=== PATIENT | male | born 1995 | race Caucasian/White ===

== ENCOUNTER → 2016-12-01 20:53 | Emergency (ER) | payer SELFPAY ==
[2016-12-01 22:59] LABS: Hematocrit 47 % (42-52); Hemoglobin 15.9 g/dl (14.0-18.0); Mean Corpuscular HGB Conc 34 g/dl (31-36); Mean Corpuscular Hemoglobin 29 pg (27-31); Mean Corpuscular Volume 85 fL (80-94); Mean Platelet Volume 9 um3 (7.4-10.4); Red Blood Count 5.52 10^6/ul (4.0-5.4); Red Cell Distribution Width 13 % (10.5-15); White Blood Count 8.3 10^3/ul (3.5-10.8)
[2016-12-01 23:14] LABS: ALT 20 U/L (7-52); AST 22 U/L (13-39); Alkaline Phosphatase 43 U/L (34-104); Anion Gap 9 mmol/L (2-11); BUN/Creatinine Ratio 11.8 (8-20); Blood Urea Nitrogen 14 mg/dL (6-24); CO2 Carbon Dioxide 26 mmol/L (22-32); Calcium 10.4 mg/dL (8.6-10.3); Chloride 102 mmol/L (101-111); EGFR African American 100.2 (>60); EGFR Non-African American 77.9 (>60); Globulin 2.8 g/dL (2-4); Glucose 141 mg/dL (70-100); Potassium 3.5 mmol/L (3.5-5.0); Sodium 137 mmol/L (133-145); Total Protein 7.8 g/dL (6.4-8.9)
[2016-12-01 23:15] LABS: Acetaminophen < 15 mcg/mL; Alcohol < 10 mg/dL (<10); Salicylate < 2.50 mg/dL (<30)
[2016-12-01 23:24] LABS: TSH (Thyroid Stimulating Horm) 1.39 mcIU/mL (0.34-5.60)
[2016-12-01 23:39] VITALS: BP 139/78
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
== END | disposition home or self-care (01) ==
LOC: ED 20:53
DX: F19.10 Other psychoactive substance abuse, uncomplicated (principal); F84.5 Asperger's syndrome; Z88.0 Allergy status to penicillin
CPT/HCPCS: 36415; 80053; 80320; 80329; 84443; 85025; 99283; G0480

== ENCOUNTER 2017-01-02 20:01 | Emergency (ER) | payer BC ==
[2017-01-02 20:16] VITALS: BP 135/88
[2017-01-02 20:49] LABS: Hematocrit 43 % (42-52); Hemoglobin 15.1 g/dl (14.0-18.0); Mean Corpuscular HGB Conc 35 g/dl (31-36); Mean Corpuscular Hemoglobin 29 pg (27-31); Mean Corpuscular Volume 84 fL (80-94); Mean Platelet Volume 9 um3 (7.4-10.4); Red Blood Count 5.14 10^6/ul (4.0-5.4); Red Cell Distribution Width 13 % (10.5-15); White Blood Count 9.5 10^3/ul (3.5-10.8)
[2017-01-02 21:00] LABS: Urine Bilirubin Negative (Negative); Urine Glucose Negative (Negative); Urine Nitrite Negative (Negative)
[2017-01-02 21:03] LABS: ALT 18 U/L (7-52); AST 19 U/L (13-39); Albumin 4.4 g/dL (3.2-5.2); Alkaline Phosphatase 38 U/L (34-104); Anion Gap 6 mmol/L (2-11); BUN/Creatinine Ratio 18.1 (8-20); Blood Urea Nitrogen 19 mg/dL (6-24); CO2 Carbon Dioxide 26 mmol/L (22-32); Calcium 9.8 mg/dL (8.6-10.3); Chloride 106 mmol/L (101-111); EGFR African American 115.8 (>60); Globulin 2.8 g/dL (2-4); Glucose 107 mg/dL (70-100); Potassium 3.6 mmol/L (3.5-5.0); Sodium 138 mmol/L (133-145); Total Protein 7.2 g/dL (6.4-8.9)
[2017-01-02 21:22] LABS: Benzodiazepine Urine Screen None Detected (None Detect)
[2017-01-02 21:24] LABS: Acetaminophen < 15 mcg/mL; Alcohol < 10 mg/dL (<10); Salicylate < 2.50 mg/dL (<30)
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
== END 2017-01-02 22:39 | disposition home or self-care (01) ==
LOC: ED 20:01
DX: F19.10 Other psychoactive substance abuse, uncomplicated (principal); F84.5 Asperger's syndrome; Z88.0 Allergy status to penicillin
CPT/HCPCS: 36415; 80053; 80307; 80320; 80329; 81003; 83605; 85025; 99282; G0480

== ENCOUNTER 2017-12-13 13:58 | Emergency (ER) | payer BC, OTHER ==
[2017-12-13 14:11] VITALS: BP 116/73
--- NOTE | 2017-12-13 14:36 | UC ---
Respiratory Complaint HPI - HPI Summary HPI Summary: 22 yo male has been ill for about 36 hours sore throat cough/productive low energy no f/c no cp or sob no n/v/d - History of Current Complaint Chief Complaint: UCRespiratory Stated Complaint: COUGH Time Seen by Provider: 12/13/17 14:25 Hx Obtained From: Patient Onset/Duration: Gradual Onset, Lasting Hours Timing: Constant Severity Initially: Mild Severity Currently: Moderate Pain Intensity: 2 Pain Scale Used: 0-10 Numeric Character: Cough: Productive Aggravating Factors: Nothing Alleviating Factors: Nothing Associated Signs And Symptoms: Positive: Nasal Congestion - Allergies/Home Medications Allergies/Adverse Reactions: Allergies Allergy/AdvReac Type Severity Reaction Status Date / Time No Known Allergies Allergy Verified 12/13/17 14:11 Home Medications: Home Medications Acetaminophen [APAP] 650 mg PO ONCE PRN 12/13/17 [History Confirmed 12/13/17] Dextroamphetamine/Amphetamine [Adderall Xr 20 mg Capsule] 1 tab PO DAILY [History Confirmed 12/13/17] Duloxetine HCl [Cymbalta] 20 mg PO DAILY 12/13/17 [History Confirmed 12/13/17] Ibuprofen 400 mg PO ONCE PRN 12/13/17 [History Confirmed 12/13/17] PMH/Surg Hx/FS Hx/Imm Hx Previously Healthy: Yes - Surgical History Surgical History: None Surgery Procedure, Year, and Place: None - Family History Known Family History: Positive: Cardiac Disease, Hypertension, Diabetes - Social History Alcohol Use: Occasionally Substance Use Type: None Smoking Status (MU): Never Smoked Tobacco - Immunization History Vaccination Up to Date: Yes Review of Systems Constitutional: Negative Skin: Negative Eyes: Negative ENT: Sore Throat Respiratory: Cough Cardiovascular: Negative Gastrointestinal: Negative Genitourinary: Negative Motor: Negative Neurovascular: Negative Musculoskeletal: Negative Neurological: Negative Psychological: Negative Is Patient Immunocompromised?: No All Other Systems Reviewed And Are Negative: Yes Physical Exam Triage Information Reviewed: Yes Appearance: Well-Appearing, No Pain Distress, Well-Nourished Vital Signs: Initial Vital Signs Temp 98.4 F 12/13/17 14:06 Pulse 95 12/13/17 14:06 Resp 18 12/13/17 14:06 BP 116/73 12/13/17 14:06 Pulse Ox 99 12/13/17 14:06 Vital Signs Reviewed: Yes Eyes: Positive: Conjunctiva Clear ENT: Positive: Hearing grossly normal. Negative: Nasal congestion, Nasal drainage, Trismus, Muffled voice, Hoarse voice Neck: Positive: Supple, Nontender Respiratory: Positive: No respiratory distress, No accessory muscle use, Rhonchi - with forced expiration Cardiovascular: Positive: RRR, No Murmur Musculoskeletal: Positive: ROM Intact, No Edema Neurological: Positive: Alert Psychological Exam: Normal Skin Exam: Normal UC Diagnostic Evaluation - Laboratory O2 Sat by Pulse Oximetry: 99 - normal/not hypoxic Respiratory Course/Dx - Differential Dx/Diagnosis Provider Diagnoses: acute bronchitis Discharge - Sign-Out/Discharge Documenting (check all that apply): Patient Departure All imaging exams completed and their final reports reviewed: No Studies - Discharge Plan Condition: Stable Disposition: HOME Prescriptions: Amoxicillin PO (*) [Amoxicillin 875 MG (*)] 875 mg PO BID #14 tab Patient Education Materials: Acute Bronchitis (ED) Forms: *School Release, *Work Release Referrals: No Primary Care Phys,NOPCP [Primary Care Provider] - Additional Instructions: recheck for new or worsening symptoms recheck in 4-5 days if not better rest fluids tylenol or advil if neede plain robitussin or mucinex - Billing Disposition and Condition Condition: STABLE Disposition: Home
== END 2017-12-13 14:58 | disposition home or self-care (01) ==
LOC: UCEAST 13:58
DX: J20.9 Acute bronchitis, unspecified (principal)
CPT/HCPCS: 99212; G0463

== ENCOUNTER 2018-04-03 01:12 | Emergency (ER) | payer OTHER ==
[2018-04-03] MEDS ORDERED: Famotidine TAB* 20 MG PO ONE (01:16)
[2018-04-03] MEDS ORDERED: NS 0.9% 1000 ML** 1,000 ML IV ONE (01:16)
[2018-04-03] MEDS ORDERED: Ondansetron INJ* 2 MG/ML VIAL IV ONE (01:16)
--- NOTE | 2018-04-03 01:41 | ED ---
Substance Abuse/Use - HPI Summary HPI Summary: Pt is a 22 y/o male brought in by EMS who presents to the ED c/o alcohol intoxication. As per EMS, he was had 2 alcoholic beverages, 5 shots of alcohol, and smoked marijuana. Pt is oriented x3 but is sleepy. He vomited once in the ambulance. EMS denies any trauma. Pts HR between 98-110 bpm while in the ambulance. Pt is a level 5 caveat due to his intoxicated state. - History Of Current Complaint Stated Complaint: ETOH Hx Obtained From: Patient, EMS Hx From Patient Unobtainable Due To: Other - Intoxication Ingestion History: Type/Name Of Drug - Alcohol, marijuana Character: Lethargic Alleviating Factor(s): Nothing Associated Signs And Symptoms: Negative - Allergies/Home Medications Allergies/Adverse Reactions: Allergies Allergy/AdvReac Type Severity Reaction Status Date / Time No Known Allergies Allergy Verified 12/13/17 14:11 PMH/Surg Hx/FS Hx/Imm Hx Endocrine/Hematology History: Denies: Hx Diabetes, Hx Thyroid Disease Cardiovascular History: Denies: Hx Hypertension Respiratory History: Denies: Hx Asthma, Hx Chronic Obstructive Pulmonary Disease (COPD) GI History: Denies: Hx Ulcer Psychiatric History: Reports: Hx Depression, Other Psychiatric Issues/Disorders - Hx Aspergers Denies: Hx Eating Disorder - Surgical History Surgery Procedure, Year, and Place: None Infectious Disease History: No Infectious Disease History: Denies: Hx Hepatitis, Hx Human Immunodeficiency Virus (HIV), Traveled Outside the [place] in Last 30 Days - Family History Known Family History: Positive: Cardiac Disease, Hypertension, Diabetes - Social History Alcohol Use: Occasionally Hx Substance Use: No Substance Use Type: Reports: None Hx Tobacco Use: No Smoking Status (MU): Never Smoked Tobacco Review of Systems Positive: Vomiting, Nausea All Other Systems Reviewed And Are Negative: No Physical Exam - Summary Physical Exam Summary: Appearance: Well appearing, no pain distress, smells of alcohol Skin: warm, dry, reflects adequate perfusion Head/face: normal Eyes: EOMI, HANDY ENT: mucous membranes moist Neck: supple, non-tender Respiratory: CTA, breath sounds present Cardiovascular: RRR, pulses symmetrical Abdomen: non-tender, soft Bowel Sounds: present Musculoskeletal: normal, strength/ROM intact Neuro: sensory motor intact, A&Ox3, minor confusion, somnolent, answers questions appropriately Triage Information Reviewed: Yes Vital Signs On Initial Exam: Initial Vitals Pulse Pulse Ox 93 100 04/03/18 01:18 04/03/18 01:18 Vital Signs Reviewed: Yes Diagnostics - Vital Signs Vital Signs Temp Pulse Resp BP Pulse Ox 04/03/18 01:26 97.8 F 70 16 117/74 99 04/03/18 01:19 92 117/74 98 04/03/18 01:18 93 100 - Laboratory Lab Statement: Any lab studies that have been ordered have been reviewed, and results considered in the medical decision making process. Re-Evaluation - Re-Evaluation First Eval Re-Evaluation Time: 04:48 Change: Improved Comment: Pt is now awake and ready to be discharged. Course/Dx - Course Course Of Treatment: Nurses notes reviewed. Pt reported ETOH without trauma. + vomiting. Tx with IVF, zofran and pepcid. Pt sobered over several hrs. Now returned to functional capacity as evidenced by clear speech, steady gait and intact reasoning. Safe ride arranged. - Diagnoses Provider Diagnoses: Alcohol intoxication, Vomiting Discharge - Sign-Out/Discharge Documenting (check all that apply): Patient Departure - Discharge - Discharge Plan Condition: Improved Disposition: HOME Patient Education Materials: Alcohol Intoxication (ED) Referrals: [facility] [[facility], APPLICATION, OTHER] - Additional Instructions: Do not drive. Never drink alcohol to excess. [place] diet as tolerated. Return if worse, new symptoms or other concerns. Follow[facility] with [facility]. If you need help for your drinking or drug use they can help with resources. - Billing Disposition and Condition Condition: IMPROVED Disposition: Home - Attestation Statements Document Initiated by Laura: Yes Documenting Scribe: Lucie Craig Provider For Whom Laura is Documenting (Include Credential): Alex Jarquin MD Scribe Attestation: Lucie Fishman, scribed for Alex Jarquin MD on 04/03/18 at 0604. Scribe Documentation Reviewed: Yes Provider Attestation: The documentation as recorded by the Lucie mandujano accurately reflects the service I personally performed and the decisions made by me, Alex Jarquin MD Status of Scribe Document: Viewed
[2018-04-03 05:10] VITALS: BP 115/57
== END 2018-04-03 05:09 | disposition home or self-care (01) ==
LOC: ED 01:12
DX: F10.129 Alcohol abuse with intoxication, unspecified (principal); R11.2 Nausea with vomiting, unspecified
CPT/HCPCS: 96361; 96365; 96366; 96374; 96375; 99283; A9270-GY; J2405